=== PATIENT | female | born 1995 | race Caucasian/White ===

== ENCOUNTER 2024-01-09 21:33 | Emergency (ER) | payer OTHER, SELFPAY ==
[2024-01-09 21:34] VITALS: BP 112/73; PULSE 108; RESP 16; TEMP 36.1; O2SAT 98; BMI 18.8
[2024-01-09 21:38] VITALS: BP 112/73; PULSE 108; RESP 16; TEMP 36.1; O2SAT 98
--- NOTE | 2024-01-09 22:14 | EDS_ITS ---
HPI History of Present Illness Chief Complaint: General Illness [facility] Medical History (Updated 01/10/24 @ 00:[address] Daniel Pinto, DO) H/O miscarriage, currently Home Medications NK 01/09/24 [History Last Taken Unknown] Allergy/AdvReac Type Severity Reaction Status Date / Time No Known Allergies Allergy Verified 01/09/24 21:38 Family History no significant family his Social History (Updated 01/09/24 @ 21:50 by Hallie Best) household members: family housing: house Smoking Status: Never smoker EXAM Physical Exam Const Vital Signs: 01/09/24 21:34 01/09/24 21:38 01/09/24 21:53 Temperature 96.9 F L 96.9 F L Temperature Source Temporal Temporal Pulse Rate 108 H 108 H Respiratory Rate 16 16 Respiratory Effort Normal Non-Labored Respiratory Pattern Normal Blood Pressure 112/73 112/73 Blood Pressure Mean 86 86 Pulse Ox 98 98 Oxygen Delivery Method Room Air Room Air 01/09/24 23:56 Temperature 98.4 F Temperature Source Temporal Pulse Rate 102 H Respiratory Rate 18 Respiratory Effort Respiratory Pattern Blood Pressure Blood Pressure Mean Pulse Ox 94 Oxygen Delivery Method Room Air MDM MDM MDM Narrative Medical decision making narrative: HISTORY OF PRESENT ILLNESS: 28 female presents with headache chills and stomach aches. She also endorses nausea vomiting diarrhea and diffuse weakness. She also notes some vaginal bleeding that started today at approximately 2 PM. She denies heavy vaginal bleeding. Notes spotting. She further states she is a G7, P3 history of 3 miscarriages. Denies history of STDs or ovarian or fallopian tube and epilati on. Notes her last period was approximately November 19, 2023. She states she developed some spotting lightheadedness earlier today which prompted her visit. REVIEW OF SYSTEMS: Pertinent positives: Vaginal bleeding, lightheadedness Pertinent negatives: Headache, chest pain, shortness of breath, PHYSICAL EXAM: Nursing triage notes reviewed, Vital signs reviewed Constitutional: please see mdm HENT: MMM Eyes: Pupils equal round and reactive to light, Extraocular muscles intact Neck: No stridor, no JVD, full neck ROM Lungs: Clear to auscultation, No wheezing or rales. No increased work of breathing, no conversational dyspnea, no accessory muscle use, no nasal flaring. No respiratory distress noted Heart: Regular rate and rhythm, No murmurs, No rubs and No gallops, 2+ distal pulses (radial, femoral, posterior tibial) in all extremities Abdomen: Soft, there is no tenderness, rigidity, rebound or guarding, no obvious peritoneal signs, no palpable pulsatile abdominal masses, no auscultated abdominal bruit : No CVAT Extremities: No edema Neuro: No focal neurological deficits, cranial nerves II through XII intact, 5/5 strength in all extremities. Intact sensation to light touch in all extremities, 2+ reflexes bilateral patella tendons. Normal gait. No ataxia. Skin: No rash or lesions noted MEDICAL DECISION MAKING: Chief Complaint: Vaginal bleeding External records reviewed: No recent [place] imaging of the pelvis, Factors affecting care: History of miscarriage Social determinants of health: none History obtained from others: , investigator utility bill complaints Consults: none [facility] Narrative: Patient was initially mildly tachycardic 108 bpm, otherwise afebrile and nontoxic-appearing. Abdominal exam benign with no peritoneal signs. No adnexal tenderness noted. I considered the following differential diagnosis: Ectopic , miscarriage, dehydration, viral illness, early I obtained a broad lab and imaging workup to further elucidate etiology patient complaints. I treated the patient 1 L normal saline, Zofran for nausea control and rehydration. ALL IMAGES (IF OBTAINED) HAVE BEEN PERSONALLY REVIEWED AND INTERPRETED BY MYSELF. Rh+, no indication for RhoGAM CBC with leukocytosis likely reactive from , mild anemia, no thrombocytopenia CMP without evidence of acute kidney injury, significant electrolyte abnormality, anion gap, no evidence hepatobiliary pathology. Quant appropriate for gestational age Urinalysis shows no evidence of urinary inflammation suggestive of UTI Pelvic ultrasound showed a single live intrauterine The synthesis of the patient's history, physical exam, labs images suggest threatened miscarriage. She is appropriate for discharge. She was given strict return precautions and follow-up instruction with FISHING INSTRUCTOR. The patient and/or family, caregivers express understanding. The patient and/or family, caregivers agrees with the plan. Shared decision making: I will have a discussion with the patient and or visitors regarding risk/benefits of further testing or admission. They will be made aware of of the risk/benefits inherent in this decision they will be given the opportunity to voice understanding. Total critical care time today provided was at least 0 minutes. This excludes separately billable procedures. Critical care time (if documented) is secondary to the patient having high probability of clinically significant/life threatening deterioration in the patient's condition which required my urgent intervention. Impression: 1. First trimester 2. Vaginal bleeding 3. Threatened miscarriage Dispo: Discharge home This note was generated with [employer] dictation software. It may contain incorrect words, spelling, and punctuation that were not noted in review of the chart prior to signing. Lab Data Labs: Laboratory Results - last 24 hr 01/09/24 01/09/24 22:48 22:55 WBC 11.4 H RBC 4.37 Hgb 11.8 L Hct 36.9 L MCV 84.4 MCH 27.0 MCHC 32.0 RDW Std Deviation 53.6 H RDW Coeff of Mc 17.3 H Plt Count 236 MPV 9.3 Immature Gran % (Auto) 0.500 Neut % (Auto) 82.4 H Lymph % (Auto) 12.6 L [place] % (Auto) 4.1 Eos % (Auto) 0.1 Baso % (Auto) 0.3 Absolute Neuts (auto) 9.4 H Absolute Lymphs (auto) 1.44 Nucleated RBC % 0 Sodium 139 Potassium 3.6 Chloride 108 H Carbon Dioxide 23.0 Anion Gap 8 BUN 10 Creatinine 0.58 Estim Creat Clear Calc 114.76 Est GFR (MDRD) Af Amer 157 Est GFR (MDRD) Non-Af 129 BUN/Creatinine Ratio 17.2 Glucose 102 Calcium 9.1 HCG, Quant 80912 H Urine Color Straw Urine Clarity Clear Urine pH 6.5 Ur Specific [place] 1.010 Urine Protein Negative Urine Glucose (UA) Normal Urine Ketones 15 H Urine Occult Blood Negative Urine Nitrite Negative Urine Bilirubin Negative Urine Urobilinogen Normal Ur Leukocyte Esterase Negative Urine RBC 0 SEEN Urine WBC 0 SEEN Ur Squamous Epith Cells 0 SEEN Urine Bacteria 0 SEEN Urine Mucus 0 SEEN Blood Type O POSITIVE Radiography Diagnostic Testing: Clinical Impression(s) from Imaging Studies Obstetrics Ultrasound 01/09/24 22:16 IMPRESSION: 1. Low lying single live intrauterine with EGA of 6 weeks 2 days by ultrasound. 2. Small hemorrhagic right ovarian corpus luteum cyst with small amount of free pelvic fluid. Electronically Signed: Delano Lopes MD at 0:30 EDT , Discharge Plan Triage Chief Complaint: General Illness ED Provider: Daniel Pinto Dx/Rx/DC Orders Clinical Impression: Threatened miscarriage Instructions: Miscarriage Threatened Prescriptions: No Action NK Primary Care Provider: Benito Physician,Areli Primary Referrals: Bel Mccoy MD [Med Staff - Active Staff] - Activity Restrictions/Additional Instructions: Thank you for trusting us with your care today! Please take Tylenol (2 pills, 650 mg) every 6 hours as needed for pain and fever control. Please return to the emergency department if your symptoms change or worsen. Please follow with your primary care physician, FISHING INSTRUCTOR, investigator utility bill complaints for further outpatient evaluation and management. Disposition Disposition: Home, Self Care Discharge Date/Time: 01/10/24 00:58
--- NOTE | 2024-01-09 22:16 | US_ITS ---
INDICATION: Vaginal bleeding, early EXAMINATION: US OB Transvaginal TECHNIQUE: Transvaginal (for optimal evaluation of the adnexa) pelvic ultrasound was performed. Grayscale, spectral waveform, and color flow Doppler evaluation of the adnexa. COMPARISON: None. FINDINGS: Uterus measures 11.7 x 6.8 x 7 cm. Single intrauterine gestational sac contains small pole and yolk sac with heart rate of 111 bpm. Gestational sac located within lower uterine body. Gestational sac shape subjectively within normal limits. Cervix is closed. [place]-rump length measurement of 4.3 mm yields estimated gestational age of 6 weeks 2 days, [place] 09/01/2024. Clinical age of 7 weeks 2 days with LMP of 11/19/2023. Small amount of free fluid within posterior cul-de-sac. No adnexal mass identified. Bilateral ovaries with normal color Doppler flow (spectral waveform analysis was not performed). Right ovary measures 3 x 2 x 2 cm and left ovary 3 x 1 x 2 cm. Isoechoic, avascular right ovarian lesion measures 2.5 x 1.4 x 1.5 cm. US/Transvaginal w/Preg US IMPRESSION: 1. Low lying single live intrauterine with EGA of 6 weeks 2 days by ultrasound. 2. Small hemorrhagic right ovarian corpus luteum cyst with small amount of free pelvic fluid. Electronically Signed: Delano Lopes MD at 0:30 EDT ,
[2024-01-09 22:52] LABS: Bacteria 0 SEEN /hpf (None Seen); Mucous, Urine 0 SEEN /hpf (<or=2+); Red Blood Cells-Urine 0 SEEN /hpf (0-5); Squamous Epithelial Cells - UA 0 SEEN /hpf (5-10); White Blood Cells 0 SEEN /hpf (0-5)
[2024-01-09 22:54] LABS: Color, Urine Straw (Yellow); Glucose, Dipstick Normal (Normal); Ketone-Dipstick 15 mg/dl (Negative); Leukocyte Esterase-Dipstick Negative /ul (Negative); Nitrite-Dipstick Negative (Negative); Occult Blood-Urine Negative /ul (Negative); Protein-Dipstick Negative (Negative); Urine Bilirubin Dipstick Negative (Negative); Urine Clarity Clear (Clear); Urine Urobilinogen Normal (Normal); Urine pH 6.5 (5.0 - 8.0)
[2024-01-09 23:04] LABS: Absolute Lymphocyte Count 1.44 X10^3/uL (0.83-4.51); Absolute Neutrophil Count 9.4 X10^3/uL (2.0-7.7); Basophil# 0.03 X10^3/uL; Basophil% 0.3 % (0-1); Eosinophil# 0.01 X10^3/uL; Eosinophils% 0.1 % (0-5); Hematocrit 36.9 % (37-47); Hemoglobin 11.8 g/dL (12.0-15.0); Lymphocyte # 1.44 X10^3/ul (0.83-4.51); Lymphocyte % 12.6 % (19-41); Mean Corpuscular Volume 84.4 fL (81-99); Mean Platelet Vol. 9.3 fl (6.2-12.0); Monocyte# 0.47 X10^3/uL; Monocyte% 4.1 % (0-10); NRBC Flagged by Analyzer 0 % (0-5); Neutrophil % 82.4 % (47-70); Platelet Count 236 K/mm3 (150-450); RBC Distribution Width CV 17.3 % (11.6-14.6); RBC Distribution Width SD 53.6 fl (35.1-43.9); Red Blood Count 4.37 M/mm3 (4.2-5.4); White Blood Count 11.4 K/mm3 (4.4-11.0)
[2024-01-09 23:36] LABS: Anion Gap 8 (5-15); BUN 10 mg/dL (7-18); BUN/Creat Ratio 17.2 RATIO (10-20); Calcium,Total 9.1 mg/dL (8.5-10.1); Chloride 108 mmol/L (98-107); Creatinine, Serum 0.58 mg/dL (0.55-1.02); EST Glomerular Filtration Rate 129 mL/min (>60); Est Glom Filt Rate - Afr Amer 157 mL/min (>60); Estimated Creatinine Clearance 114.76 ml/min; Glucose 102 mg/dL (74-106); Potassium 3.6 mmol/L (3.5-5.1); Sodium Level 139 mmol/L (136-145)
[2024-01-09 23:54] LABS: hCG Titer Quant., Serum 29214 mIU/mL (1-3)
[2024-01-09 23:56] VITALS: PULSE 102; RESP 18; TEMP 36.9; O2SAT 94
== END 2024-01-10 00:58 | disposition home or self-care (01) ==
PROVIDERS: Emergency Provider Emergency Medicine; Visit Provider Emergency Medicine
DX: O20.0 Threatened abortion (principal); Z3A.00 Weeks of gestation of pregnancy not specified
CPT/HCPCS: 76817; 80048; 81001; 84702; 85025; 86900; 86901; 99283; A4216